=== PATIENT | male | born 1970 | race Two or more races ===

== ENCOUNTER → 2017-11-14 | Outpatient (CLI) | payer OTHER ==
--- NOTE | 2017-11-14 17:32 | PN ---
PROGRESS NOTE 46-year-old male patient with severe obstructive sleep apnea and AHI of 84.3. The patient is coming in for a compliancy check. He has a DPAP auto which is set with a minimum pressure of 10, maximum pressure of 25 and pressure support of 4. He is using an Maureen view large full face mask. His compliancy has improved. His clinical has also improved. He is still leaking around the mask and I think there is a defect in his VPAP machine and I think the humidification chamber is not providing an excellent seal and leaking around the connection. the patient is using his VPAP every night, use for his VPAP is . The patient has been achieving more than four hours 24 out of the 30 days. His pressure averages are 15.8/11.8. He is still leaking and the leak is estimated to be around 115 L per minute. His tidal volume is around 750. His AHI while on treatment is down to 12.7. He is doing better. He is waking up much more alert and awake. His Gratiot score is down to 10. He is benefitting from the treatment. He likes Maureen full face mask. We tried different masks on him and unfortunately based on his anatomy and his facial features, none of these masks gave him excellent seal with the exception of Maureen view. His BP is 140/84. Pulse 72. Respiratory rate 16. Gratiot score is 10. Temperature 97.4, weight is 246 and pressure 97% on room air. Gratiot score is 10. General appearance: Calm comfortable. In no acute distress. HEENT: Head is atraumatic, normocephalic. Neck is short, supple. There is no goiter or neck masses. Mallampati Class IV. Lungs diminished breath sounds bilaterally, otherwise clear. Heart sounds are regular rate and rhythm. Normal S1, S2. No S3, no S4. No murmurs. Abdomen soft, nontender. No organomegaly. No direct tenderness, rebound or guarding. Extremities: No edema, cyanosis or clubbing. Neurological: alert and oriented times three. There is no focal or neurological deficits. Psychiatric: There is no anxiety or depression. Skin: Negative for any wounds or ulcerations. IMPRESSION: Severe symptomatic obstructive sleep apnea with AHI 84.3, currently on VPAP auto. Compliancy in general has improved. The patient is still having leaks around the mask and there may be some leak around the machine chamber. PLAN: 1. Continue using the same VPAP machine. 2. Service the VPAP machine with [facility]. 3. Continue the Maureen view full face mask. 4. Keep the same pressure settings. 5. The patient is benefitting clinically improved, we will continue to follow and make further recommendations based on his progress. IDALMIS / VENESSAN: [id number] /
== END | disposition home or self-care (01) ==
LOC: SLEEP 14:37
PROVIDERS: ATTEND Internal Medicine Critical Care Medicine
DX: G47.33 Obstructive sleep apnea (adult) (pediatric) (principal); Z99.89 Dependence on other enabling machines and devices